=== PATIENT | male | born 1960 | race Caucasian/White ===

== ENCOUNTER 2020-04-21 07:42 | Outpatient (CLI) | payer BC ==
[2020-04-21 16:34] LABS: #Basophils 0.1 10x3/uL (0.0-0.2); #Eosinphils 0.3 10x3/uL (0.0-0.5); #Monocytes 0.7 10x3/uL (0.0-1.1); #Neutrophils 3.4 10x3/uL (1.5-8.4); %Basophils 1.2 % (0.0-2.0); %Eosinophils 5.5 % (0.0-6.0); %Lymphocytes 22.5 % (18.0-47.0); %Monocytes 11.9 % (0.0-10.0); %Neutrophils 58.7 % (40.0-75.0); Hemoglobin 14.9 g/dL (14.0-18.0); Mean Corpuscular HGB CONC 32.7 G/DL (32.0-36.0); Mean Corpuscular Hemoglobin 29.6 PG (27.0-33.0); Mean Corpuscular Volume 90.5 fl (80.0-100.0); Mean Platelet Volume 10.6 fl (7.4-10.4); Platelet Count 182 10x3/uL (130-400); Red Blood Cell (RBC) Count 5.04 10x6/uL (4.40-5.80); White Blood Cell (WBC) Count 5.8 10x3/uL (4.5-11.0)
[2020-04-21 16:37] LABS: ALT (SGPT) 75 U/L (8-55); AST (SGOT) 27 U/L (5-34); Albumin 4.8 g/dL (3.4-4.8); Alkaline Phosphatase 83 U/L (40-110); Anion Gap 11 mmol/L (10-20); BUN (Urea Nitrogen) 18 mg/dL (8.4-25.7); Bilirubin, Total 0.4 mg/dL (0.2-1.2); Calc. Creatinine Clearance 0 mL/min (70-130); Calcium 9.9 mg/dL (7.8-10.44); Carbon Dioxide 28 mmol/L (23-31); Chloride 101 mmol/L (98-107); Globulin 2.4 g/dL (2.4-3.5); Glucose 117 mg/dL (80-115); Potassium 4.2 mmol/L (3.5-5.1); Protein, Total 7.2 g/dL (5.8-8.1); Sodium 136 mmol/L (136-145)
[2020-04-22 01:58] LABS: SARS-CoV-2 PCR by NAA Not Detected (NotDetected)
--- NOTE | 2020-04-22 12:39 | EKG ---
Test Reason : Blood Pressure : / mmHG Vent. Rate : 060 BPM Atrial Rate : 060 BPM P-R Int : 202 ms QRS Dur : 100 ms QT Int : 412 ms P-R-T Axes : 043 074 056 degrees QTc Int : 412 ms Normal sinus rhythm Non-specific intra-ventricular conduction delay Borderline ECG No previous ECGs available Confirmed by KINDRA BANGURA ([id number]) on 04/22/2020 12:39:17 PM Referred By: LAWRENCE Confirmed By:KINDRA BANGURA
== END 2020-04-21 07:43 | disposition home or self-care (01) ==
LOC: LABBT 07:42
PROVIDERS: ATTEND Surgery
DX: Z01.818 Encounter for other preprocedural examination (principal); K42.9 Umbilical hernia without obstruction or gangrene; Z20.822 Contact with and (suspected) exposure to COVID-19
CPT/HCPCS: 80053; 85025; 87635; 93005; 93010; U0003; U0005

== ENCOUNTER 2020-04-26 08:53 | Day surgery (SDC) | payer BC ==
[2020-04-22 15:27] VITALS: BMI 31.6
[2020-04-26] MEDS ORDERED: Fentanyl 100 MCG/2 ML VIAL ONE (09:37)
[2020-04-26] MEDS ORDERED: EPINEPHrine 1 MG/ML AMP ONE (09:42)
[2020-04-26] MEDS ORDERED: Bupivacaine PF 0.5% 30 ML VIAL ONE (09:42)
[2020-04-26] MEDS ORDERED: Rocuronium Bromide 10 MG/ML (10ML VIAL) ONE (09:48)
[2020-04-26] MEDS ORDERED: Lidocaine 1% PF 5 ML VIAL ONE (09:48)
[2020-04-26] MEDS ORDERED: Ondansetron PF 4 MG/2 ML Vial ONE (09:48)
[2020-04-26] MEDS ORDERED: Dexamethasone 20 MG/5 ML VIAL ONE (09:48)
[2020-04-26] MEDS ORDERED: PROPOFOL 200 MG/20 ML VIAL ONE (09:48)
[2020-04-26] MEDS ORDERED: Glycopyrrolate 0.2 MG/ML 5 ML SYRINGE ONE (09:48)
--- NOTE | 2020-04-26 13:04 | OP ---
DATE OF PROCEDURE: 04/26/2020 PREOPERATIVE DIAGNOSIS: Umbilical hernia. PROCEDURE PERFORMED: Umbilical hernia repair with mesh. INDICATIONS: A 60-year-old male who has umbilical hernia causing pain. FINDINGS: 1.5-cm defect, 6.4-cm mesh used. DESCRIPTION OF PROCEDURE: After informed consent was obtained, the patient was taken to the operating room, given general endotracheal anesthesia, placed in supine position. Abdomen was prepped and draped in usual fashion. Local anesthesia was infiltrated subcutaneously and deep, a subumbilical incision was performed. Subcu divided sharply. The umbilical skin was dissected from the hernia sac circumferentially and the hernia sac dissected down to the fascia and excised. The defect was reduced, measured at 1.5 cm. A 6.4-cm mesh was hydrated, rolled, and inserted intra-abdominally, then unrolled. were sutured to the fascia with interrupted 0 Ethibond. Hemostasis was assured. The wound irrigated. The skin was reapproximated to the fascia with interrupted 3-0 Vicryl to restore umbilical contour. Skin closed with interrupted 4-0 Rapide. Steri-Strips applied. Sterile bandage applied. The patient tolerated the procedure well, transferred to Recovery in good condition. Sponge and needle count verified correct x2. Job ID: [id number]
[2020-04-26] MEDS ORDERED: Cepastat Lozenges 1 LOZ PO SCH (14:00)
== END 2020-04-26 14:41 | disposition home or self-care (01) ==
LOC: SDC 08:53
PROVIDERS: ATTEND Surgery
PROC: 0WUF0JZ Supplement Abdominal Wall with Synthetic Substitute, Open Approach (ICD-10-PCS; principal; 2020-04-26)
DX: K42.9 Umbilical hernia without obstruction or gangrene (principal); F31.9 Bipolar disorder, unspecified; E78.5 Hyperlipidemia, unspecified; N40.0 Benign prostatic hyperplasia without lower urinary tract symptoms; N52.9 Male erectile dysfunction, unspecified; Z79.899 Other long term (current) drug therapy
CPT/HCPCS: J0171; J0690; J1100; J2405; J2704; J3010; S0020